=== PATIENT | female | born 1985 | race Caucasian/White ===

== ENCOUNTER 2024-03-31 21:56 | Emergency (ER) | payer OTHER, SELFPAY ==
[2024-03-31 21:58] VITALS: BP 123/83
[2024-03-31 22:19] LABS: % Basophils 0.9 % (0-2); % Eosinophils 2.5 % (0-6); % Immature Granulocytes 0.2 % (0-0.5); % Lymphocytes 37.4 % (20.5-51.1); % Monocytes 8.8 % (1.7-9.3); % Neutrophils 50.2 % (42.2-75.2); Absolute Basophils 0.1 10^3/uL (0-0.2); Absolute Eosinophils 0.1 10^3/uL (0-0.7); Absolute Lymphocytes 2.1 10^3/uL (1.2-3.4); Absolute Monocytes 0.5 10^3/uL (0.1-0.6); Absolute Neutrophils 2.9 10^3/uL (1.4-6.5); Hematocrit 38.1 % (37.0-47.0); Hemoglobin 11.9 g/dL (12.0-16.0); Mean Corp Hgb Conc. 31.2 g/dL (33.0-37.0); Mean Corpuscular Hgb 25.5 pg (27.0-31.0); Mean Corpuscular Volume 81.6 fL (81.0-99.0); Mean Platelet Volume 11.1 fL (7.4-10.4); Nucleated Red Blood Cells % 0 %; Platelet Count 214 10^3/uL (130-400); Red Blood Cell Count 4.67 10^6/uL (4.20-5.40); Red Cell Dist. Width 15.3 % (11.5-14.5); White Blood Cell Count 5.7 10^3/uL (4.8-10.8)
[2024-03-31 22:31] LABS: HCG, Serum Qualitative Screen Negative
[2024-03-31 22:35] LABS: ALT (SGPT) 20 U/L (0-35); AST (SGOT) 23 U/L (14-36); Albumin 4.6 g/dl (3.5-5.0); Alkaline Phosphatase 76 U/L (38-126); Blood Urea Nitrogen 11 mg/dl (7-17); Calcium 11.5 mg/dl (8.4-10.2); Carbon Dioxide 26 mmol/L (22-30); Chloride 103 mmol/L (98-107); Glucose 112 mg/dl (70-99); Sodium 137 mmol/L (135-145); Total Bilirubin 0.4 mg/dl (0.2-1.3); Total Protein 7.3 g/dl (6.3-8.2); eGFR > 60.00
--- NOTE | 2024-04-01 01:57 | ED.GENMED ---
History of Present Illness
General
Chief Complaint: Skin Problem
Source: patient
Exam Limitations: none
Time Seen by Provider: 04/01/24 01:34
Travel History
Have you had any contact with someone who has COVID-19?: No
Do you have any symptoms of coronavirus? Fever > 100 degrees, chills, cough, shortness of breath, sore throat, loss of taste or smell, muscle aches, or headache?: No
History of Present Illness
History of Present Illness:
This is a 38 year old Andorran speaking female that comes in with multiple complaints. States that she feels like the left sided of her face is swollen and that this started about 7pm. States that she also has some left upper abd discomfort. States
that she has slight chest discomfort with SOB and pain with deep breathing. Denies any fever, chills, nausea, vomiting, diarrhea, headache, dizziness, urinary burning.
Past History
Past History
ED Past Medical History: None; Negative Asthma, HTN, Hypercholesterolemia or NIDDM
ED Past Surgical History: Gynecological (Uterine polyp removed)
Social History
Tobacco: Non-smoker
Alcohol: Occasional
Personal: Single
Living: alone
Review of Systems
Review of Systems
All Other Systems: ROS reviewed and negative except as documented in HPI and ROS
Constitutional: Reports no symptoms; Denies fever or chills
EENT: Reports no symptoms
Respiratory: Reports trouble breathing; Denies cough
Cardiac: Reports chest pain
ABD/GI: Reports abdominal pain; Denies nausea, vomiting or diarrhea
: Reports no symptoms; Denies dysuria, frequency or urgency
Musculoskeletal: Reports no symptoms
Skin: Reports no symptoms
Neurological: Reports no symptoms; Denies dizzy or headache
Psychiatric: Reports no symptoms
Phy Exam
General Physical Exam
General Presentation: well appearing and no apparent distress
General age: appears stated age
General Skin: warm and dry
General Habitus: normal
General Mental: alert
General Hydration: appears well hydrated
ENT Exam
ENT Exam: TM's normal, pharynx normal and neck supple
Eye Exam
Eye Exam: EOMI
Cardiovascular Exam
Cardiovascular Exam: regular rate/rhythm, no edema, no murmur and normal peripheral pulses
Pulmonary Exam
Pulmonary Exam: lungs clear, no respiratory distress, no rales, chest non tender, no crackles, no rhonchi, no wheezing and no cough
Gastrointestinal Exam
Gastrointestinal Exam: normal bowel sounds, non tender, soft, no organomegaly, no pulsatile mass and non distended
Musculoskeletal Exam
Musculoskeletal Exam: full ROM and no edema
Skin Exam
Skin Exam: normal color, warm/dry, no rash, no petechia and other (Negative for obvious facial swelling, Negative for any redness)
Psychiatric Exam
Psychiatric Exam: normal mood/affect
Course
Orders/Labs/Results
Orders:
Orders
03/31/24 22:06
Test Result ONCE
03/31/24 22:11
Complete Blood Count/With Diff Urgent
Comprehensive Metabolic Panel Urgent
HCG, Serum Qualitative Screen Urgent
04/01/24 01:58
Electrocardiogram (*1) Urgent
Reason for Study: Shortness of Breath
EKG- Treatment ONCE
CR Chest - 2 Views Urgent
Comment:
Reason For Exam: SOB chest pain
04/01/24 02:08
D-Dimer Urgent
Troponin I Urgent
Abnormal Lab Results
03/31/24
22:11
Hgb 11.9 L g/dL
(12.0-16.0)
MCH 25.5 L pg
(27.0-31.0)
MCHC 31.2 L g/dL
(33.0-37.0)
RDW 15.3 H %
(11.5-14.5)
MPV 11.1 H fL
(7.4-10.4)
Glucose 112 H mg/dl
(70-99)
Calcium 11.5 H mg/dl
(8.4-10.2)
03/31/24 22:11
03/31/24 22:11
Hgb slightly low. Glucose nonfasting. Calcium elevation. HCG negative. Troponin <0.012, D-dimer 0.31
Vital Signs
Initial and Last Documented VS:
Initial Vital Signs
Temp Pulse Resp BP Pulse Ox
97.9 F 90 18 123/83 99
03/31/24 21:58 03/31/24 21:58 03/31/24 21:58 03/31/24 21:58 03/31/24 21:58
Last Documented Vital Signs
Temp Pulse Resp BP Pulse Ox
97.9 F 84 13 128/76 99
03/31/24 21:58 04/01/24 02:51 04/01/24 02:51 04/01/24 02:51 03/31/24 21:58
MDM/Problems Addressed
Differential Diagnosis Includes:
PNA, PE, Dental issues
MDM/Problems Addressed:
This is a 38 year old female that comes in with multiple complaints. Via the Phone file conversion operator, patient states that she feels like her face is swollen. States that she has slight chest pain and SOB. Pain with deep breathing and this upper abd left
sided pain. States that this started tonight.
Will check labs. Chest x-ray, D-dimer
Back into see patient. Explained that her blood work is normal. Her D-dimer is negative and her chest X-ray is normal. Troponin is normal and there is no redness or obvious swelling of her face. Patient to follow up with the family doctor. Return
with any concerns.
Chronic conditions affecting care:
NA
Acute Exacerbation and/or Progression of Chronic Illness:
NA
*Radiology
Radiology exam reviewed: preliminary read by ED provider (Chest- Negative for any cardiopulmonary disease)
*Pulse Oximetry
Patient hypoxic: no
*Rn Chemical Dependency Interpretation
Rate: Rn Chemical Dependency- N/A
*Critical Care Note
Total Time (30-74mins, 75-104mins- exclusive of procedures): Not Applicable
ED Attending Note
-
Portions of this chart may have been created with voice recognition software.� Occasional wrong word or��sound alike� substitutions may have occurred due to the inherent limitations of voice recognition software.
Discharge Plan
Departure
Patient Disposition: Home (Routine Discharge)
Date of Disposition: 04/01/24
Time of Disposition: 03:01
Patient with high blood pressure during this ER visit?: No
Condition: Good
Covid-19: Not Applicable
Discharge Problem:
Multiple complaints
Instructions: Anxiety, Adult ED
Prescriptions:
No Action
No Current Medications
0
Activity Restrictions/Additional Instructions:
As discussed, your blood work is normal. Your Chest x-ray is normal along with your ECG. There is no obvious facial swelling or redness. This may all be due to anxiety. Please follow up with the family doctor. IF YOU HAVE ANY REDNESS OF THE FACE, OR
YOU HAVE ANY OTHER CONCERNS PLEASE RETURN TO THE EMEGENCY ROOM.
Interventions
Interventions:
*Risk Screen - Suicide Last Done: 04/01/24 02:12
*General Assessment Last Done: 03/31/24 21:58
*Neglect/Abuse Screening Last Done: 04/01/24 02:12
*ED COVID-19 Vaccine History Last Done: 03/31/24 21:58
*Nursing Disposition Last Done: 04/01/24 00:53
ED-Skin Assessment Last Done: 04/01/24 02:12
Discharge Date and Time
Print Language: IVORIAN
[2024-04-01 02:29] LABS: D-Dimer 0.31 ug/mlFEU (0.00-0.50)
[2024-04-01 02:49] LABS: Troponin I < 0.012 ng/ml
[2024-04-01 02:51] VITALS: BP 128/76
[2024-04-01 03:00] VITALS: BP 121/71
== END 2024-04-01 03:08 | disposition home or self-care (01) ==
LOC: EMR 21:56
PROVIDERS: Clinical Nurse Specialist Family Health; Emergency Medicine; EMERGENCY PHYSICIAN Emergency Medicine; FAMILY PHYSICIAN Nurse Practitioner
DX: R10.12 Left upper quadrant pain (principal); R07.89 Other chest pain; R06.02 Shortness of breath
CPT/HCPCS: 99283; 71046; 80053; 84484; 84703; 85025; 85379; 93005

== ENCOUNTER 2024-04-02 10:20 | Emergency (ER) | payer OTHER, SELFPAY ==
[2024-04-02 10:25] VITALS: BP 108/70
--- NOTE | 2024-04-02 10:57 | ED.GENMED ---
History of Present Illness
<Letha Jim PA-C - Last Filed: 04/02/24 20:38>
General
Chief Complaint: Swelling
Source: patient and other (Patient is Syrian-speaking, language line was used for interpretation)
Exam Limitations: none
Time Seen by Provider: 04/02/24 10:56
Nursing documentation reviewed up to this point in time: agreed with
Travel History
Have you had any contact with someone who has COVID-19?: No
Do you have any symptoms of coronavirus? Fever > 100 degrees, chills, cough, shortness of breath, sore throat, loss of taste or smell, muscle aches, or headache?: No
History of Present Illness
History of Present Illness:
38-year-old female with no past medical history presenting emergency department today with concern of facial swelling, nausea and headache, as well as left-sided abdominal pain that started yesterday. Patient states that she started experiencing
similar symptoms yesterday around 4 PM. Patient did not have a headache and nausea at that time, but only left abdominal pain chest pain. She was seen here in emergency department yesterday and had a unremarkable workup. Patient states that her
pain has gotten worse and that she now has flank pain associated with it. Patient denies any fevers or chills, denies any hematuria, dysuria, any vomiting. Patient denies any visual changes. Patient denies any syncopal episode, any chest pain
shortness of breath. Patient states that she has tried Motrin and allergy medication without relief. Patient also notes left-sided facial swelling which she was seen here yesterday for as well. Patient denies any dysphagia or any rash.
Past History
<Letha Jim PA-C - Last Filed: 04/02/24 20:38>
Past History
ED Past Medical History: None; Negative Asthma, HTN, Hypercholesterolemia or NIDDM
ED Past Surgical History: Gynecological (Uterine polyp removed)
Social History
Tobacco: Non-smoker
Alcohol: Occasional
Personal: Single
Living: alone
Review of Systems
<Letha Jim PA-C - Last Filed: 04/02/24 20:38>
Review of Systems
All Other Systems: ROS reviewed and negative except as documented in HPI and ROS
Phy Exam
<Letha Jim PA-C - Last Filed: 04/02/24 20:38>
Physical Exam
Physical Exam:
General: Patient is well appearing and in no acute distress; non-toxic
Skin: Warm and dry, no rashes or lesions
Head: Normocephalic, atraumatic. I am personally not able to appreciate any left-sided facial swelling.
Eyes: Sclera non-icteric. EOMs intact. Mild left upper eyelid swelling.
Mouth: Uvula midline, no pharyngeal erythema.
Neck: No cervical lymphadenopathy
Cardiac: Regular rate and rhythm, no murmurs
Peripheral Vascular: No lower extremity swelling or
Pulm: Normal respiratory effort
Abdomen: No palpable masses, mild periumbilical and generalized left-sided abdominal tenderness palpation. No CVA tenderness. Normoactive bowel sounds.
Neuro: CN II-XII intact, no focal neurologic deficits.
Psychiatric: Appropriate mood and affect.
Course
<Letha Jim PA-C - Last Filed: 04/02/24 20:38>
Orders/Labs/Results
Orders:
Orders
04/02/24 11:40
CT Abd/pelvis W Iv Cont Urgent
Comment:
Reason For Exam: persistent periumbilical abdominal pain
04/02/24 11:48
Test Result ONCE
04/02/24 11:55
0.9% Sodium Chloride 1000 ml [Nss] 1,000 ml IV BOLUS
Ketorolac [Toradol] 15 mg IV NOW STA
Ondansetron Injectable [Zofran] 4 mg IV NOW STA
04/02/24 12:08
Complete Blood Count/With Diff Urgent
Comprehensive Metabolic Panel Urgent
HCG, Serum Qualitative Screen Urgent
Lipase Urgent
04/02/24 12:12
Urinalysis Reflex To Culture Urgent
Date Specimen was Collected: 04/02/24
Time Specimen was Collected: 12:08
04/02/24 14:19
Diphenhydramine [Benadryl] 12.5 mg IV NOW STA
Metoclopramide [Reglan] 10 mg IV NOW STA
Abnormal Lab Results
04/02/24
12:08
WBC 4.0 L 10^3/uL
(4.8-10.8)
MCV 78.4 L fL
(81.0-99.0)
MCH 25.6 L pg
(27.0-31.0)
MCHC 32.6 L g/dL
(33.0-37.0)
RDW 15.4 H %
(11.5-14.5)
MPV 11.0 H fL
(7.4-10.4)
Absolute Lymphs (auto) 1.1 L 10^3/uL
(1.2-3.4)
Chloride 108 H mmol/L
(98-107)
Creatinine 0.5 L mg/dL
(0.6-1.0)
Calcium 10.4 H mg/dl
(8.4-10.2)
04/02/24 12:08
04/02/24 12:08
Vital Signs
Initial and Last Documented VS:
Initial Vital Signs
Temp Pulse Resp BP Pulse Ox
98.1 F 86 18 108/70 100
04/02/24 10:25 04/02/24 10:25 04/02/24 10:25 04/02/24 10:25 04/02/24 10:25
Last Documented Vital Signs
Temp Pulse Resp BP Pulse Ox
98.1 F 86 16 118/62 100
04/02/24 10:25 04/02/24 14:33 04/02/24 14:33 04/02/24 14:33 04/02/24 14:33
<Alejandro Aguilar, DO - Last Filed: 04/02/24 13:36>
Orders/Labs/Results
Orders:
Orders
04/02/24 11:40
CT Abd/pelvis W Iv Cont Urgent
Comment:
Reason For Exam: persistent periumbilical abdominal pain
04/02/24 11:48
Test Result ONCE
04/02/24 11:55
0.9% Sodium Chloride 1000 ml [Nss] 1,000 ml IV BOLUS
Ketorolac [Toradol] 15 mg IV NOW STA
Ondansetron Injectable [Zofran] 4 mg IV NOW STA
04/02/24 12:08
Complete Blood Count/With Diff Urgent
Comprehensive Metabolic Panel Urgent
HCG, Serum Qualitative Screen Urgent
Lipase Urgent
04/02/24 12:12
Urinalysis Reflex To Culture Urgent
Date Specimen was Collected: 04/02/24
Time Specimen was Collected: 12:08
04/02/24 14:19
Diphenhydramine [Benadryl] 12.5 mg IV NOW STA
Metoclopramide [Reglan] 10 mg IV NOW STA
Abnormal Lab Results
04/02/24
12:08
WBC 4.0 L 10^3/uL
(4.8-10.8)
MCV 78.4 L fL
(81.0-99.0)
MCH 25.6 L pg
(27.0-31.0)
MCHC 32.6 L g/dL
(33.0-37.0)
RDW 15.4 H %
(11.5-14.5)
MPV 11.0 H fL
(7.4-10.4)
Absolute Lymphs (auto) 1.1 L 10^3/uL
(1.2-3.4)
Chloride 108 H mmol/L
(98-107)
Creatinine 0.5 L mg/dL
(0.6-1.0)
Calcium 10.4 H mg/dl
(8.4-10.2)
04/02/24 12:08
04/02/24 12:08
Vital Signs
Initial and Last Documented VS:
Initial Vital Signs
Temp Pulse Resp BP Pulse Ox
98.1 F 86 18 108/70 100
04/02/24 10:25 04/02/24 10:25 04/02/24 10:25 04/02/24 10:25 04/02/24 10:25
Last Documented Vital Signs
Temp Pulse Resp BP Pulse Ox
98.1 F 86 16 118/62 100
04/02/24 10:25 04/02/24 14:33 04/02/24 14:33 04/02/24 14:33 04/02/24 14:33
<Letha Jim PA-C - Last Filed: 04/02/24 20:38>
*Pulse Oximetry
Patient hypoxic: no
*Critical Care Note
Total Time (30-74mins, 75-104mins- exclusive of procedures): Not Applicable
Data Reviewed
Review of Other/Old Records Reveals: Records (Reviewed previous records from ER physician documentation on 04/01/2024) and Discharge Summary (Discharge summaries [facility])
Source: patient and records
<Letha Jim PA-C - Last Filed: 04/02/24 20:38>
Patient Management
Escalation/DeEscalation of care consider admission/obs:
38 y/o female presenting to the ER with multiple complaints:
Abdominal pain: Started yesterday, has gotten worse and been persistent. CBC and CMP unremarkable. CT scan of the abdomen and pelvis negative for any acute intraabdominal pathology. Pain completely resolved with one dose of Toradol. Patient has
follow up with primary scheduled for April 17.
Head fullness/dizziness: Patient states that she has a sensation of head fullness/dizziness. Neurologic exam unremarkable with no focal deficits. No dysmetria. Pain significantly improved with reglan, toradol, benadryl. Patient also has mild left
sided eyelid swelling. Suspect an acute rhinosinusitis or allergic rhinitis/conjunctivitis. No indication for head CT at this time. Patient sent home on course of Augmentin. Advised continued use of claritin and revaluation. All patient questions
answered. Stable for discharge.
<Letha Jim PA-C - Last Filed: 04/02/24 20:38>
Update Note
Update Note:
2:18 pm-- Patient states that in general her headache has improved but she does still experience some nausea and head heaviness. Will try Reglan
Prior to discharge, patient states that she feels a lot better and just has some mild head discomfort now.
ED Attending Note
<Letha Jim PA-C - Last Filed: 04/02/24 20:38>
-
Portions of this chart may have been created with voice recognition software.� Occasional wrong word or��sound alike� substitutions may have occurred due to the inherent limitations of voice recognition software.
<Alejandro Aguilar DO - Last Filed: 04/02/24 13:36>
ED Attending Note
Patient seen and examined by attending physician: Yes
I performed a history and physical exam of patient and discussed management with resident, I reviewed resident's note and agree with documented findings and plan of care.: Yes
ED Attending Note:
I have reviewed and agree with patient treatment plan by Letha Jim. My exam revealed 38-year-old female in no acute distress, speaking through division human resources manager. Mild left perinasal swelling abdomen exam benign. Will evaluate for possible kidney
stone versus other cause of flank/epigastric pain.
Discharge Plan
Departure
Patient Disposition: Home (Routine Discharge)
Date of Disposition: 04/02/24
Time of Disposition: 16:14
Patient with high blood pressure during this ER visit?: No
Condition: Good
Discharge Problem:
Sinusitis, Headache
Instructions: Sinusitis, Adult ED, Seasonal Allergies ED, BLOOD PRESSURE
Prescriptions:
New
amoxicillin-pot clavulanate [Augmentin] 500-125 mg tablet
1 tab PO Q8H 5 Days Qty: 15 0RF
Referrals:
Zeinab Quan CRNP [Family Provider] -
Activity Restrictions/Additional Instructions:
We have sent Augmentin to your pharmacy. Please take one tablet every 8 hours for 5 days.
Please return emergency department should you experience shortness of breath, chest pain, trouble swallowing, tongue or lip swelling, or any other signs or symptoms concerning to you.
As discussed, you can continue to take loratidine (Claratine) one 10 mg tablet once daily or one 5 mg tablet twice daily.
Please follow-up with your primary care provider as discussed on April 17.
Interventions
Interventions:
*Risk Screen - Suicide Last Done: 04/02/24 10:25
*General Assessment Last Done: 04/02/24 10:25
*Neglect/Abuse Screening Last Done: 04/02/24 10:25
ED- Fall Risk Assessment Last Done: 04/02/24 11:13
*ED COVID-19 Vaccine History Last Done: 04/02/24 10:25
*Nursing Disposition Last Done: 04/02/24 16:29
ED- Cardiac Assessment Last Done: 04/02/24 11:13
ED- Pulmonary Assessment Last Done: 04/02/24 11:13
ED-Skin Assessment Last Done: 04/02/24 11:12
Discharge Date and Time
Discharge Date/Time: 04/02/24 16:29
Print Language: Syrian
[2024-04-02 12:27] LABS: Urine Albumin Negative (Neg - Trace); Urine Bilirubin Negative (Negative); Urine Character Clear (Clear); Urine Color Yellow; Urine Glucose Negative (Negative); Urine Ketone Negative (Negative); Urine Leukocyte Negative (Negative); Urine Nitrite Negative (Negative); Urine Occult Blood Negative (Negative); Urine Specific Gravity 1.005 (<1.030); Urine Urobilinogen Negative (Neg - 1+)
[2024-04-02] MEDS: ZOFRAN 4 MG IV (12:58)
[2024-04-02] MEDS: TORADOL 15 MG IV (12:58)
[2024-04-02] MEDS: NSS 1000 IV (12:59)
[2024-04-02 13:04] LABS: % Eosinophils 1.5 % (0-6); % Immature Granulocytes 0.2 % (0-0.5); % Lymphocytes 26.4 % (20.5-51.1); % Neutrophils 63.9 % (42.2-75.2); Absolute Eosinophils 0.1 10^3/uL (0-0.7); Absolute Lymphocytes 1.1 10^3/uL (1.2-3.4); Absolute Monocytes 0.3 10^3/uL (0.1-0.6); Absolute Neutrophils 2.6 10^3/uL (1.4-6.5); Hematocrit 37.4 % (37.0-47.0); Hemoglobin 12.2 g/dL (12.0-16.0); Mean Corp Hgb Conc. 32.6 g/dL (33.0-37.0); Mean Corpuscular Hgb 25.6 pg (27.0-31.0); Mean Corpuscular Volume 78.4 fL (81.0-99.0); Nucleated Red Blood Cells % 0 %; Platelet Count 204 10^3/uL (130-400); Red Blood Cell Count 4.77 10^6/uL (4.20-5.40); Red Cell Dist. Width 15.4 % (11.5-14.5)
[2024-04-02 13:32] LABS: ALT (SGPT) 21 U/L (0-35); AST (SGOT) 26 U/L (14-36); Albumin 4.3 g/dl (3.5-5.0); Alkaline Phosphatase 55 U/L (38-126); Blood Urea Nitrogen 8 mg/dl (7-17); Calcium 10.4 mg/dl (8.4-10.2); Carbon Dioxide 23 mmol/L (22-30); Chloride 108 mmol/L (98-107); Glucose 85 mg/dl (70-99); Lipase 103 U/L (23-300); Potassium 4.2 mmol/L (3.5-5.1); Sodium 137 mmol/L (135-145); Total Bilirubin 0.7 mg/dl (0.2-1.3); eGFR > 60.00
[2024-04-02 13:52] LABS: HCG, Serum Qualitative Screen Negative
[2024-04-02] MEDS: BENADRYL 12.5 MG IV (14:25)
[2024-04-02] MEDS: REGLAN 10 MG IV (14:25)
[2024-04-02 14:33] VITALS: BP 118/62
== END 2024-04-02 16:29 | disposition home or self-care (01) ==
LOC: EMR 10:20
PROVIDERS: Physician Assistant; EMERGENCY PHYSICIAN Emergency Medicine; FAMILY PHYSICIAN Nurse Practitioner
DX: J01.90 Acute sinusitis, unspecified (principal); R51.9 Headache, unspecified; R10.33 Periumbilical pain; R11.0 Nausea; R22.0 Localized swelling, mass and lump, head; R42 Dizziness and giddiness; R07.9 Chest pain, unspecified; Z11.52 Encounter for screening for COVID-19
CPT/HCPCS: 99285; 74177; 80053; 81003; 83690; 84703; 85025; Q9967

== ENCOUNTER 2024-04-04 20:32 | Emergency (ER) | payer OTHER, SELFPAY ==
[2024-04-04 20:41] VITALS: BP 104/72
--- NOTE | 2024-04-04 22:18 | ED.GENMED ---
History of Present Illness
General
Chief Complaint: Nasal Problem
Time Seen by Provider: 04/04/24 21:38
Travel History
Have you had any contact with someone who has COVID-19?: No
Do you have any symptoms of coronavirus? Fever > 100 degrees, chills, cough, shortness of breath, sore throat, loss of taste or smell, muscle aches, or headache?: No
History of Present Illness
History of Present Illness:
Marshallese language line [id number] used for interpretation
38-year-old female with no significant past medical history presenting back to the emergency department for the third time in 3 days for evaluation of a multitude of symptoms but today stating that symptom bothering her most is a headache described
to be a stabbing sharp sensation a greenish-red nasal discharge. Patient reports that she was started on an antibiotic but she is not sure for what. She states she does have a little bit of frustration as no one checked her head when she was here
the other day and only did a workup on her abdomen. Patient states no new symptoms today outside of feeling a little confused and difficulty concentrating.
Past History
Past History
ED Past Medical History: None; Negative Asthma, HTN, Hypercholesterolemia or NIDDM
ED Past Surgical History: Gynecological (Uterine polyp removed)
Social History
Tobacco: Non-smoker
Alcohol: Occasional
Drug: None
Personal: Single
Living: alone
Review of Systems
Review of Systems
All Other Systems: ROS reviewed and negative except as documented in HPI and ROS
Phy Exam
Physical Exam
Physical Exam:
GENERAL: Alert , tearful and upset/frustrated
EYE: conjunctiva clear
NECK: Supple
ENT: o/p clr, mmm. No tonsillar edema or exudates, uvula midline, airway patent, no stridor or trismus
CARDIAC: Regular rate and rhythm
LUNGS: Clear breath sounds bilaterally, no acute respiratory distress, no wheezes/rales/rhonchi
NEUROLOGICAL: Alert and oriented
SKIN: Warm and dry, skin intact.
MUSCULOSKELETAL: well perfused.
PSYCH: Normal and appropriate interaction.
Scores
Heart Failure Risk
Heart Failure Risk Score: Not Applicable
Heart Score for Chest Pain Patients
STEMI patient?: Not applicable
Withdrawal Assessment of Alcohol
Withdrawal Assessment Completed?: Not applicable
Course
Orders/Labs/Results
Orders:
Orders
04/04/24 22:18
CT Head W/o Iv Contrast Urgent
Comment:
Reason For Exam: headache
Ibuprofen [Motrin] 600 mg PO NOW STA
04/04/24 22:21
COVID-19 Antigen Urgent
Source: Nasal Swab
Vital Signs
Initial and Last Documented VS:
Initial Vital Signs
Temp Pulse Resp BP Pulse Ox
98.3 F 100 16 104/72 100
04/04/24 20:41 04/04/24 20:41 04/04/24 20:41 04/04/24 20:41 04/04/24 20:41
Last Documented Vital Signs
Temp Pulse Resp BP Pulse Ox
98.6 F 82 14 120/68 96
04/05/24 00:06 04/05/24 00:06 04/05/24 00:06 04/05/24 00:06 04/05/24 00:06
MDM/Problems Addressed
Differential Diagnosis Includes:
Viral syndrome, tension headache, migraine headache, minimal concern for intracranial bleeding
MDM/Problems Addressed:
38-year-old female presenting to the emergency department for evaluation of a multitude of symptoms, this is her third visit to the ER this week for the same. Had blood work done and CT imaging of the abdomen and pelvis 2 days ago without any
abnormal pathologies. I reviewed her lab work which did show a mild leukopenia which could certainly signify viral etiology. Will check a COVID test as this was not done. Patient's main complaint today is headache and while I am doubtful for
intracranial bleeding this is her third visit to the emergency department so I do think it is reasonable to check more advanced imaging of the head to rule out any significant emergent pathologies. Patient has not taken any medications for since
this started so we will trial some Motrin. Reassessment following with suspicion ultimate plan will be to discharge home.
*Radiology
Radiology exam reviewed: radiology read reviewed
*Pulse Oximetry
Patient hypoxic: no
*Critical Care Note
Total Time (30-74mins, 75-104mins- exclusive of procedures): Not Applicable
Patient Management
Escalation/DeEscalation of care consider admission/obs:
Patient's CAT scan negative for any intracranial pathology. Stable for discharge home and continued outpatient management.
ED Attending Note
-
Portions of this chart may have been created with voice recognition software.� Occasional wrong word or��sound alike� substitutions may have occurred due to the inherent limitations of voice recognition software.
Discharge Plan
Departure
Patient Disposition: Home (Routine Discharge)
Date of Disposition: 04/05/24
Time of Disposition: 00:06
Patient with high blood pressure during this ER visit?: No
Discharge Problem:
Headache
Instructions: Headache, Adult ED
Prescriptions:
No Action
amoxicillin-pot clavulanate [Augmentin] 500-125 mg tablet
1 tab PO Q8H 5 Days Qty: 15 0RF
Referrals:
Zeinab Quan CRNP [Family Provider] -
Interventions
Interventions:
*Risk Screen - Suicide Last Done: 04/04/24 20:41
*General Assessment Last Done: 04/04/24 20:41
*Neglect/Abuse Screening Last Done: 04/04/24 20:41
ED- Fall Risk Assessment Last Done: 04/05/24 00:00
*ED COVID-19 Vaccine History Last Done: 04/04/24 21:34
*Nursing Disposition Last Done: 04/05/24 00:10
ED-EENT Assessment Last Done: 04/04/24 21:35
Discharge Date and Time
Discharge Date/Time: 04/05/24 00:10
Print Language: Marshallese
[2024-04-04] MEDS: MOTRIN 600 MG PO (22:24)
[2024-04-04 22:44] LABS: COVID-19 Antigen Negative (Negative)
[2024-04-05 00:06] VITALS: BP 120/68
== END 2024-04-05 00:10 | disposition home or self-care (01) ==
LOC: EMR 20:32
PROVIDERS: Physician Assistant Medical; EMERGENCY PHYSICIAN Emergency Medicine; FAMILY PHYSICIAN Nurse Practitioner
DX: R51.9 Headache, unspecified (principal); Z11.52 Encounter for screening for COVID-19
CPT/HCPCS: 99284; 70450; 87811

== ENCOUNTER 2024-12-17 17:09 | Emergency (ER) | payer OTHER, SELFPAY ==
[2024-12-17 17:15] VITALS: BP 124/78
[2024-12-17 17:30] LABS: % Basophils 0.7 % (0-2); % Eosinophils 0.7 % (0-6); % Immature Granulocytes 0.4 % (0-0.5); % Lymphocytes 23.6 % (20.5-51.1); % Monocytes 7.4 % (1.7-9.3); % Neutrophils 67.2 % (42.2-75.2); Absolute Basophils 0.1 10^3/uL (0-0.2); Absolute Eosinophils 0.1 10^3/uL (0-0.7); Absolute Lymphocytes 1.7 10^3/uL (1.2-3.4); Absolute Monocytes 0.5 10^3/uL (0.1-0.6); Absolute Neutrophils 4.8 10^3/uL (1.4-6.5); Hematocrit 38.6 % (37.0-47.0); Hemoglobin 12.6 g/dL (12.0-16.0); Mean Corp Hgb Conc. 32.6 g/dL (33.0-37.0); Mean Corpuscular Hgb 26.3 pg (27.0-31.0); Mean Corpuscular Volume 80.6 fL (81.0-99.0); Mean Platelet Volume 10.8 fL (7.4-10.4); Nucleated Red Blood Cells % 0 %; Platelet Count 205 10^3/uL (130-400); Red Blood Cell Count 4.79 10^6/uL (4.20-5.40); Red Cell Dist. Width 13.9 % (11.5-14.5); White Blood Cell Count 7.1 10^3/uL (4.8-10.8)
[2024-12-17 17:50] LABS: ALT (SGPT) 21 U/L (0-35); AST (SGOT) 20 U/L (14-36); Albumin 5.1 g/dl (3.5-5.0); Alkaline Phosphatase 75 U/L (38-126); Blood Urea Nitrogen 8 mg/dl (7-17); Calcium 10.2 mg/dl (8.4-10.2); Carbon Dioxide 25 mmol/L (22-30); Chloride 103 mmol/L (98-107); Glucose 96 mg/dl (70-99); Potassium 3.7 mmol/L (3.5-5.1); Sodium 139 mmol/L (135-145); Total Bilirubin 0.6 mg/dl (0.2-1.3); Total Protein 7.7 g/dl (6.3-8.2); eGFR > 60.00
--- NOTE | 2024-12-17 20:04 | ED.GENMED ---
History of Present Illness
General
Chief Complaint: Post Operative Problem(s)
Time Seen by Provider: 12/17/24 20:04
History of Present Illness
History of Present Illness:
TIME OF INITIAL ENCOUNTER: 8:05 PM
HPI: Patient had a parathyroidectomy at [facility] about a month ago. The parathyroidectomy was due to parathyroid nodules present in the setting of hypercalcemia. More recently, she has been having dyspnea on exertion. She has a sensation that she
cannot quite clear her lungs. She has no chest pain.
EXAM:
GENERAL: Well appearing in no distress
HEENT: Moist oral mucosa, recent appearing surgical wound/scarring to the lower anterior neck consistent with parathyroidectomy
CARDIOVASCULAR: No murmurs, normal heart rate, regular rhythm, No chest wall tenderness
PULMONARY: No respiratory distress, breath sounds are clear and equal
ABDOMEN: Soft with no peritoneal signs, no tenderness
NEUROLOGIC: Excellent strength all extremities, no coordination deficits
PSYCHIATRIC: Appropriate mental status, normal insight and judgement
EXTREMITIES: Nontender, no edema, moves all extremities equally
SKIN: No rash, no lesions
NUMBER AND COMPLEXITY OF PROBLEMS ADDRESSED AT THE ENCOUNTER
� Chronic conditions affecting care: Had parathyroidectomy for hypercalcemia
� Acute Exacerbation and/or Progression of Chronic Illness: This is an acute problem
� Differential Diagnosis includes: Anxiety, viral syndrome, reactive airway disease, PE
AMOUNT AND/OR COMPLEXITY OF DATA TO BE REVIEWED AND ANALYZED
� I performed an independent evaluation of and my interpretation is:
EKG: Sinus 86, normal axis, no acute ST abnormality
CT: I personally reviewed the CT imaging of the chest and agree with radiologist interpretation that there is no PE or any other abnormality to the lung
X-rays:
Laboratory Studies: White count 7.1, hemoglobin 12.6, calcium normal, chemistries unremarkable
Other:
� Review of other/old records: The patient was seen here last year and at one point had multiple complaints along with a normal D-dimer
� Clinical information was obtained by an independent historian: I spoke to son at bedside who also assist with translation; ED nurse, Samreen, also assisted with translation
� Prescriptions/Medications Considered but not given: See below
� Further testing considered but not performed:
RISK OF COMPLICATIONS AND/OR MORBIDITY OR MORTALITY OF PATIENT MANAGEMENT
� Social determinants of health affecting care: Lives at home
� Discussion with other providers:
� Escalation of care including admission/observation vs risk of discharge considered: Room air sats are 100% vital signs are not consistent with PE however she did have a recent surgery and primarily complains of dyspnea on
exertion. Will obtain CT imaging for further evaluation.
ANY OTHER UPDATES:
10:10 PM: I reassessed patient. She appears very comfortable in no respiratory distress. CTA reassuring. She tells me that the nebulizer did not really make much of a difference. Will hold off on albuterol MDI as an outpatient as nebulizer did
not do anything.
Past History
Past History
ED Past Medical History: None; Negative Asthma, HTN, Hypercholesterolemia or NIDDM
ED Past Surgical History: Gynecological (Uterine polyp removed)
Social History
Tobacco: Non-smoker
Alcohol: Occasional
Drug: None
Personal: Single
Living: alone
Phy Exam
Physical Exam
Physical Exam:
See HPI
Course
Orders/Labs/Results
Orders:
Orders
12/17/24 17:24
CMP [Comprehensive Metabolic Panel] Urgent
Complete Blood Count/With Diff Urgent
HCG, Serum Qualitative Screen Urgent
Comment: ADD ON
12/17/24 20:13
Add On- LAB Urgent
Tests Added?: serum hcg screen
12/17/24 20:14
CT Chest PE Study Urgent
Comment:
Reason For Exam: MELTON after parathyroidectomy
Ipratropium/Albuterol Sulfate [Duoneb] 3 ml INH R NOW STA
12/17/24 20:58
Electrocardiogram (*1) Urgent
Reason for Study: Shortness of Breath
EKG- Treatment ONCE
Abnormal Lab Results
12/17/24
17:24
MCV 80.6 L fL
(81.0-99.0)
MCH 26.3 L pg
(27.0-31.0)
MCHC 32.6 L g/dL
(33.0-37.0)
MPV 10.8 H fL
(7.4-10.4)
Albumin 5.1 H g/dl
(3.5-5.0)
12/17/24 17:24
12/17/24 17:24
Vital Signs
Initial and Last Documented VS:
Initial Vital Signs
Temp Pulse Resp BP Pulse Ox
36.9 C 82 16 124/78 100
12/17/24 17:15 12/17/24 17:15 12/17/24 17:15 12/17/24 17:15 12/17/24 17:15
Last Documented Vital Signs
Temp Pulse Resp BP Pulse Ox
36.9 C 82 16 128/80 100
12/17/24 17:15 12/17/24 17:15 12/17/24 17:15 12/17/24 20:21 12/17/24 20:22
*Critical Care Note
Total Time (30-74mins, 75-104mins- exclusive of procedures): Not Applicable
ED Attending Note
-
Portions of this chart may have been created with voice recognition software.� Occasional wrong word or��sound alike� substitutions may have occurred due to the inherent limitations of voice recognition software.
Discharge Plan
Departure
Patient Disposition: Home (Routine Discharge)
Date of Disposition: 12/17/24
Time of Disposition: 22:12
Patient with high blood pressure during this ER visit?: Yes
Discharge Problem:
Shortness of breath
Instructions: Shortness of breath
Prescriptions:
No Action
amoxicillin-pot clavulanate [Augmentin] 500-125 mg tablet
1 tab PO Q8H 5 Days Qty: 15 0RF
Referrals:
Zeinab Quan CRNP [Family Provider] -
Activity Restrictions/Additional Instructions:
Komp'yuternaya tomografiya ne vyyavila trombov v legkikh jh kakikh-libo drugikh otkloneniy v legkikh. Vasha EKG v norme. Bazovyy satya krovi takzhe v norme. Vash uroven' sandra'tsiya 10,2. Vernites' syuda, yesli stanet khuzhe jh vozniknut
drugiye problemy.
Interventions
Interventions:
*Risk Screen - Suicide Last Done: 12/17/24 17:15
*General Assessment Last Done: 12/17/24 20:23
*Neglect/Abuse Screening Last Done: 12/17/24 17:15
*ED COVID-19 Vaccine History Last Done: 12/17/24 20:23
ED-Skin Assessment Last Done: 12/17/24 20:23
Discharge Date and Time
Print Language: Scottish
[2024-12-17] MEDS: DUONEB 3 ML INH (20:18)
[2024-12-17 20:21] VITALS: BP 128/80
[2024-12-17 21:00] VITALS: BP 125/59
[2024-12-17 21:13] LABS: HCG, Serum Qualitative Screen Negative
== END 2024-12-17 22:22 | disposition home or self-care (01) ==
LOC: EMR 17:09
PROVIDERS: Emergency Medicine; EMERGENCY PHYSICIAN Emergency Medicine; FAMILY PHYSICIAN Nurse Practitioner
DX: R06.02 Shortness of breath (principal); Z98.890 Other specified postprocedural states; Z90.89 Acquired absence of other organs
CPT/HCPCS: 99284; 94640; 71275; 80053; 84703; 85025; 93005; Q9967

== ENCOUNTER 2025-04-30 00:05 | Emergency (ER) | payer OTHER, SELFPAY ==
[2025-04-30] VITALS (11 sets, daily range): BP systolic 109–144; BP diastolic 67–80; PULSE 67–87
[2025-04-30 00:38] LABS: % Basophils 0.7 % (0-2); % Eosinophils 1.3 % (0-6); % Immature Granulocytes 0.1 % (0-0.5); % Lymphocytes 39.2 % (20.5-51.1); % Monocytes 8.5 % (1.7-9.3); % Neutrophils 50.2 % (42.2-75.2); Absolute Basophils 0.1 10^3/uL (0-0.2); Absolute Eosinophils 0.1 10^3/uL (0-0.7); Absolute Lymphocytes 2.7 10^3/uL (1.2-3.4); Absolute Monocytes 0.6 10^3/uL (0.1-0.6); Absolute Neutrophils 3.4 10^3/uL (1.4-6.5); Hematocrit 39.5 % (37.0-47.0); Hemoglobin 12.7 g/dL (12.0-16.0); Mean Corp Hgb Conc. 32.2 g/dL (33.0-37.0); Mean Corpuscular Hgb 24.6 pg (27.0-31.0); Mean Corpuscular Volume 76.4 fL (81.0-99.0); Mean Platelet Volume 11.2 fL (7.4-10.4); Nucleated Red Blood Cells % 0 %; Platelet Count 241 10^3/uL (130-400); Red Blood Cell Count 5.17 10^6/uL (4.20-5.40); Red Cell Dist. Width 15.6 % (11.5-14.5); White Blood Cell Count 6.8 10^3/uL (4.8-10.8)
[2025-04-30 00:53] LABS: HCG, Serum Qualitative Screen Negative
[2025-04-30 00:55] LABS: ALT (SGPT) 18 U/L (0-35); AST (SGOT) 20 U/L (14-36); Alkaline Phosphatase 55 U/L (38-126); Blood Urea Nitrogen 9 mg/dl (7-17); Calcium 9.7 mg/dl (8.4-10.2); Carbon Dioxide 21 mmol/L (22-30); Chloride 110 mmol/L (98-107); Glucose 101 mg/dl (70-99); Potassium 3.6 mmol/L (3.5-5.1); Sodium 141 mmol/L (135-145); Total Bilirubin 0.6 mg/dl (0.2-1.3); Total Protein 7.7 g/dl (6.3-8.2); eGFR > 60.00
[2025-04-30 01:26] LABS: TSH 3.51 uIU/ml (0.47-4.68)
[2025-04-30 01:58] LABS: Troponin I < 0.012 ng/ml
[2025-04-30 04:46] LABS: Troponin I < 0.012 ng/ml
[2025-04-30] MEDS: NSS 1000 IV (05:08)
--- NOTE | 2025-04-30 05:49 | ED.GENMED ---
History of Present Illness
General
Chief Complaint: Chest Pain
Source: patient and previous radiology exam (Unremarkable CT of the chest December 2024. Unremarkable CT of the head as well as abdomen and pelvis CT March 2024.)
Exam Limitations: none (Patient is Gambian-speaking. Language line chief accounting officer utilized.)
Time Seen by Provider: 04/30/25 04:29
Nursing documentation reviewed up to this point in time: agreed with
History of Present Illness
History of Present Illness:
This is a 39-year-old Gambian-speaking woman with history of hyperparathyroidism who underwent parathyroidectomy November 2024. Other than this no significant past medical history, she takes no medicines on a daily basis.
She does admit to significant stress and worry regarding ongoing [place] war and admits to poor oral intake, poor sleep over the past 3 to 4 days due to significant worry and stress.
Tonight she awoke around 1:30 AM and initially noted some pain and spasm of her left arm. She is unsure if she awoke lying on her left arm and has had similar occasional similar episodes of waking with pain in spasms of her left hand upper arm.
Left arm and hand spasm quickly resolved with repositioning but then she got up out of bed and went to the bathroom and upon doing so she developed somewhat abrupt onset of upper chest, upper back and anterior neck pain as well as headache. Along
with this she began to feel lightheaded, dizzy, felt as if she was in a fog and quickly lie down. With prompt repositioning to supine, lightheadedness and fogginess resolved but she continued with some upper chest discomfort and neck discomfort
thus presented to the ED. Currently pain-free and comfortable. She has not had a cough nor shortness of breath. No fever no chills.
Denies risk of . Last menstrual period April 06. Normal and on time.
Past History
Past History
ED Past Medical History: Other (Hyperparathyroidism status post prior thyroidectomy November 2024.); Negative Asthma, HTN, Hypercholesterolemia or NIDDM
ED Past Surgical History: Gynecological (Uterine polyp removed) and Other (Parathyroidectomy November 2024)
Social History
Tobacco: Non-smoker
Alcohol: Occasional
Drug: None
Personal: Single
Living: alone
Employment: Not employed
Family History
Family History: Other (Noncontributory)
Phy Exam
Physical Exam
Physical Exam:
GENERAL: 39-year-old woman appears her stated age, awake and alert, pleasant, appears in no acute distress. Easily communicative. [place]ian language line chief accounting officer utilized.
EYE: pupils equal and reactive. anicteric. Extraocular muscles intact.
NECK: Supple, nontender, no meningismus, no significant adenopathy. No palpable tenderness. No adenopathy. No bruit.
ENT: posterior pharynx is clear, oral mucosa is moist. TM clear b/l, nares patent.
CARDIAC: Regular rate and rhythm. no murmur. No chest wall tenderness.
LUNGS: Clear breath sounds bilaterally, no acute respiratory distress, no wheezes/rales/rhonchi
ABDOMEN: Soft, nondistended, without focal tenderness, no r/g, no cvat. normoactive BS.
NEUROLOGICAL: Alert and oriented x3, no focal neuro deficits.
SKIN: Warm and dry, normal color, skin intact. No rash.
MUSCULOSKELETAL: No C/C/E. peripheral pulses are full and equal b/l. No palpable tenderness.
PSYCH: Normal and appropriate interaction.
Scores
Heart Score for Chest Pain Patients
STEMI patient?: No
History: Slightly or Non-Suspicious
ECG: Normal
Age: </= 45 years
Risk Factors: No Risk Factors
Troponin: </= Normal Limit
Heart Score for Chest Pain Patients: 0
Heart Score Risk: 2.5% MACE over next 6 weeks
Course
Orders/Labs/Results
Orders:
Orders
04/30/25 00:17
Electrocardiogram (*1) Urgent
Reason for Study: Chest Pain
04/30/25 00:18
EKG- Treatment ONCE
Test Result ONCE
04/30/25 00:29
Complete Blood Count/With Diff Urgent
Comprehensive Metabolic Panel Urgent
HCG, Serum Qualitative Screen Urgent
TSH Urgent
04/30/25 01:19
Troponin I Urgent
04/30/25 04:06
EKG- Treatment ONCE
04/30/25 04:15
Troponin I Urgent
04/30/25 04:20
EKG [Electrocardiogram (*1)] Urgent
Reason for Study: Chest Pain
04/30/25 05:03
0.9% Sodium Chloride 1000 ml [Nss] 1,000 ml IV BOLUS
04/30/25 05:04
Orthostatic VS- Treatment ONCE
Abnormal Lab Results
04/30/25
00:29
MCV 76.4 L fL
(81.0-99.0)
MCH 24.6 L pg
(27.0-31.0)
MCHC 32.2 L g/dL
(33.0-37.0)
RDW 15.6 H %
(11.5-14.5)
MPV 11.2 H fL
(7.4-10.4)
Chloride 110 H mmol/L
(98-107)
Carbon Dioxide 21 L mmol/L
(22-30)
Glucose 101 H mg/dl
(70-99)
04/30/25 00:29
04/30/25 00:29
Vital Signs
Initial and Last Documented VS:
Initial Vital Signs
Temp Pulse Resp BP Pulse Ox
98.3 F 102 22 144/80 100
04/30/25 00:08 04/30/25 00:08 04/30/25 00:08 04/30/25 00:08 04/30/25 00:08
Last Documented Vital Signs
Temp Pulse Resp BP Pulse Ox
98.3 F 80 13 124/77 100
06/19/25 00:08 04/30/25 05:46 04/30/25 05:46 04/30/25 05:46 04/30/25 05:52
MDM/Problems Addressed
Differential Diagnosis Includes:
Concern for ACS, GERD, arrhythmia, orthostasis. Nothing in history nor exam to suggest TIA/CVA.
Unremarkable neuroimaging 1 year ago.
Significant underlying stress/anxiety.
She does admit to poor oral intake over the past 3 days. Some concern for an element of orthostasis upon standing tonight, concern for vasovagal episode/near syncope.
Thus far labs are unremarkable including negative troponin. EKG is unremarkable and unchanged from previous.
Will plan to repeat troponin.
Will give a liter of normal saline solution and plan for orthostatic vital signs.
If unremarkable, no return of symptoms we will plan for discharge to home with recommendations for prompt follow-up with her PCP.
*Pulse Oximetry
SaO2: 100
Oxygen Mode of Delivery: Room air
Patient hypoxic: no
*EKG
Interpreted by ED Provider?: Yes
Interpretation: normal
Comparison EKG: no changes
Rate: normal
Rhythm: sinus
Mcdougal: normal axis
Interval: normal interval
QRS Pattern: normal QRS
Ischemia: no ischemia
*Medical Doctor Interpretation
Rate: normal
Interpretation: normal
Rhythm: sinus
*Critical Care Note
Total Time (30-74mins, 75-104mins- exclusive of procedures): Not Applicable
Update Note
Update Note:
05:45
Repeat troponin remains flat.
Orthostatic vital signs are negative.
Patient has had no return of chest pain, eager to be discharged to home.
As above, I suspect an element of GERD as well as an episode of orthostasis with standing.
Will discharge to home with plan for prompt follow-up with PCP.
Encouraged to avoid skipping meals, staying well hydrated on a daily basis.
ED Attending Note
-
Portions of this chart may have been created with voice recognition software.� Occasional wrong word or��sound alike� substitutions may have occurred due to the inherent limitations of voice recognition software.
Discharge Plan
Departure
Patient Disposition: Home (Routine Discharge)
Date of Disposition: 04/30/25
Time of Disposition: 05:49
Patient with high blood pressure during this ER visit?: No
Condition: Good
Discharge Problem:
Acute nonspecific chest pain with low risk of coronary artery disease, Vasovagal near syncope
Instructions: Coping with worry and stress, Chest Pain PCP Follow Up
Prescriptions:
No Action
amoxicillin-pot clavulanate [Augmentin] 500-125 mg tablet
1 tab PO Q8H 5 Days Qty: 15 0RF
Referrals:
Zeinab Quan CRNP [Primary Care Provider, General] - Call in 1-3 days for appt
Interventions
Interventions:
*Risk Screen - Suicide Last Done: 04/30/25 01:07
*General Assessment Last Done: 04/30/25 01:07
*Neglect/Abuse Screening Last Done: 04/30/25 01:07
*ED- Fall Risk Assessment Last Done: 04/30/25 01:07
*ED COVID-19 Vaccine History Last Done: 04/30/25 01:07
*Nursing Disposition Last Done: 04/30/25 06:05
ED- Cardiac Assessment Last Done: 04/30/25 01:07
Discharge Date and Time
Discharge Date/Time: 04/30/25 06:06
Print Language: Gambian
== END 2025-04-30 06:06 | disposition home or self-care (01) ==
LOC: EMR 00:05
PROVIDERS: EMERGENCY PHYSICIAN Emergency Medicine; PRIMARYCARE PHYSICIAN Nurse Practitioner
DX: R07.9 Chest pain, unspecified (principal); R55 Syncope and collapse; Z98.890 Other specified postprocedural states; Z90.89 Acquired absence of other organs
CPT/HCPCS: 96360; 99284; 80053; 84443; 84484; 84703; 85025; 93005

== ENCOUNTER 2025-06-24 21:19 | Emergency (ER) | payer OTHER, SELFPAY ==
[2025-06-24 21:21] VITALS: BP 140/77
[2025-06-24 21:37] VITALS: BP 127/76
[2025-06-24 22:00] VITALS: BP 112/69
[2025-06-24 22:03] VITALS: BMI 22.7
[2025-06-24 22:07] VITALS: BP 112/69
[2025-06-24 22:34] LABS: Hematocrit 36.4 % (37.0-47.0); Hemoglobin 11.8 g/dL (12.0-16.0); Mean Corp Hgb Conc. 32.4 g/dL (33.0-37.0); Mean Corpuscular Volume 77.0 fL (81.0-99.0); Nucleated Red Blood Cells % 0 %; Platelet Count 201 10^3/uL (130-400); Red Cell Dist. Width 16.4 % (11.5-14.5)
[2025-06-24 23:00] VITALS: BP 127/71
[2025-06-24 23:10] LABS: ALT (SGPT) 15 U/L (0-35); AST (SGOT) 15 U/L (14-36); Albumin 4.5 g/dl (3.5-5.0); Alkaline Phosphatase 48 U/L (38-126); Blood Urea Nitrogen 7 mg/dl (7-17); Calcium 9.4 mg/dl (8.4-10.2); Carbon Dioxide 22 mmol/L (22-30); Chloride 111 mmol/L (98-107); Estimated Creatinine Clearance 99 ml/min; Glucose 96 mg/dl (70-99); Potassium 4.3 mmol/L (3.5-5.1); Sodium 141 mmol/L (135-145); Total Protein 6.9 g/dl (6.3-8.2); eGFR > 60.00
[2025-06-24 23:20] LABS: D-Dimer < 0.27 ug/mlFEU (0.00-0.50)
[2025-06-24 23:22] LABS: Troponin I < 0.012 ng/ml
[2025-06-24] MEDS: CARAFATE SUSPENSION 1 GM PO (23:25)
[2025-06-24] MEDS: NSS 1000 IV (23:58)
[2025-06-25] VITALS: BP 112/70
[2025-06-25] MEDS: ZOFRAN 4 MG IV (00:38)
[2025-06-25 01:00] VITALS: BP 119/71
[2025-06-25] MEDS: TYLENOL ORAL SOLUTION 650 MG PO (01:13)
--- NOTE | 2025-06-25 01:43 | ED.GENMED ---
History of Present Illness
General
Chief Complaint: Anxiety
Source: patient and other
Exam Limitations: none
Time Seen by Provider: 06/24/25 21:43
Nursing documentation reviewed up to this point in time: agreed with
History of Present Illness
History of Present Illness:
Note:
CHIEF COMPLAINT(S)
Severe neck and arm pain.
HISTORY OF PRESENT ILLNESS
The patient is a 40-year-old male presenting with neck and arm pain that started about 10 hours ago. Initially, the pain was intense, rated as 9 out of 10. At the time of evaluation, the pain had decreased to a 6 out of 10. The pain seems to
radiate from the head down to the arms and neck. There is no mention of the pain being affected by position or physical activity.
The patient has a history of two parathyroidectomies this year, which might be relevant to the current presentation, though not directly affecting the symptoms at hand. The patient does not take any medications regularly.
MEDICATIONS
The patient has not been prescribed any current medications.
REVIEW OF SYSTEMS
- Musculoskeletal: Severe neck and arm pain, described as very strong.
- Gastrointestinal: Plan is to administer a medication (likely carafate) to coat the stomach and reduce possible reflux that could potentially exacerbate symptoms.
PHYSICAL EXAM
General: Alert, no acute distress.
Skin: Warm, dry.
Head: Normocephalic, atraumatic.
Neck: Supple, trachea midline.
Eye Ears, nose, mouth and throat: Oral mucosa moist.
Cardiovascular: Normal peripheral perfusion, No edema.
Respiratory: Respirations are non-labored.
Gastrointestinal: Abdomen nondistended
Back: Normal range of motion, Normal alignment.
Musculoskeletal: Normal ROM, normal strength.
Neurological: Alert and oriented to person, place, time, and situation, No focal neurological deficit observed.
Psychiatric: Cooperative, appropriate mood & affect.
PROBLEM LIST
Acute Problems:
- Severe neck and arm pain
Chronic Problems:
- History of parathyroid surgeries
PLAN
- Await lab work results.
- Administer medication (likely sucralfate) to coat the stomach and assess its effect on pain.
- Perform a physical examination to assess neck and arm discomfort.
DIFFERENTIAL DIAGNOSIS
The Differential Diagnosis includes, in no particular order and is not limited to:
- Cervical radiculopathy
- Musculoskeletal strain
- Neuropathy
- Myofascial pain syndrome
- Gastroesophageal reflux disease with referred pain
- Carpal tunnel syndrome
- Thoracic outlet syndrome
- Spinal stenosis
- Peripheral nerve entrapment
- Fibromyalgia
Disposition:
SUMMARY OF ENCOUNTER
The patient is a 40-year-old female who presented with increased stress and anxiety, reporting head pain that radiated down to her arms and legs. She has been experiencing heightened stress recently and noted that the symptoms occur under stress.
During the visit, she was administered sucralfate which alleviated her symptoms. Additionally, she received acetaminophen for migraine-like symptoms, which also led to symptom resolution. The patient experienced nausea and was treated with
ondansetron, which helped.
DISPOSITION
Patient to be discharged home.
MEDICATION RECONCILIATION
- Sucralfate administered for symptomatic relief.
- Acetaminophen administered for migraine-like symptoms.
- Ondansetron administered for nausea.
PATIENT EDUCATION AND COUNSELING
The patient was educated on managing stress and anxiety and advised on the importance of reducing stress to prevent recurrence of symptoms.
FOLLOW-UP INSTRUCTIONS
Follow-up with primary care physician for ongoing management of stress and anxiety.
MEDICAL DECISION MAKING
-Complexity of Data Reviewed:
- Differential diagnosis considered: Neuropathy, Myofascial pain syndrome, Carpal tunnel syndrome.
-Data:
Category 2
- Language line was used extensively throughout the history and physical process, indicating the use of an pool nurse service.
DIAGNOSIS
- Anxiety disorder with physical symptoms (F41.9)
- Migraine-like headache (G43.909)
Past History
Past History
ED Past Medical History: Other (Hyperparathyroidism status post prior thyroidectomy November 2024.); Negative Asthma, HTN, Hypercholesterolemia or NIDDM
ED Past Surgical History: Gynecological (Uterine polyp removed) and Other (Parathyroidectomy November 2024)
Social History
Tobacco: Non-smoker
Alcohol: Occasional
Drug: None
Personal: Single
Living: alone
Employment: Not employed
Family History
Family History: Other (Noncontributory)
Phy Exam
General Physical Exam
General Presentation: well appearing and no apparent distress
General Skin: warm and dry
General Habitus: normal
General Mental: alert
General Hydration: appears well hydrated
ENT Exam
ENT Exam: EOMI, pharynx normal, neck supple and normocephalic
Eye Exam
Eye Exam: PERRL, cornea clear and conjunctiva normal
Cardiovascular Exam
Cardiovascular Exam: regular rate/rhythm, no edema, no murmur and normal peripheral pulses
Pulmonary Exam
Pulmonary Exam: lungs clear, no respiratory distress, no rales, no crackles, no rhonchi, no stridor, no wheezing and no cough
Gastrointestinal Exam
Gastrointestinal Exam: normal bowel sounds, non tender, soft, no organomegaly, no pulsatile mass and non distended
Neurological Exam
Neurological Exam: alert, oriented x3, no motor deficits and speech normal
Musculoskeletal Exam
Musculoskeletal Exam: full ROM and no edema
Skin Exam
Skin Exam: normal color, warm/dry, no rash and no petechia
Psychiatric Exam
Psychiatric Exam: normal mood/affect
Course
Orders/Labs/Results
Orders:
Orders
06/24/25 21:20
EKG [Electrocardiogram (*1)] Urgent
Reason for Study: Chest Pain
06/24/25 21:21
EKG- Treatment ONCE
06/24/25 22:27
Complete Blood Count/With Diff Urgent
Comprehensive Metabolic Panel Urgent
Troponin I Urgent
06/24/25 23:00
D-Dimer Urgent
06/24/25 23:13
Sucralfate Suspension [Carafate Suspension] 1 gm PO NOW STA
06/24/25 23:35
0.9% Sodium Chloride 1000 ml [Nss] 1,000 ml IV BOLUS
CXR2 [CR Chest - 2 Views ] Urgent
Comment:
Reason For Exam: chest pain
06/25/25 00:36
Ondansetron Injectable [Zofran] 4 mg .ROUTE .STK-MED ONE
06/25/25 00:37
Ondansetron Injectable [Zofran] 4 mg IV NOW STA
06/25/25 00:58
Acetaminophen [Tylenol] 1,000 mg .ROUTE .STK-MED ONE
Acetaminophen [Tylenol] 1,000 mg PO NOW STA
06/25/25 01:03
Acetaminophen 1000MG/100Ml [Ofirmev] 1,000 mg in 100 ml IV ONCE
Acetaminophen IV Indication:: ED Narcotic Naive Pt-ONCE
06/25/25 01:11
Acetaminophen [Tylenol Oral Solution] 650 mg .ROUTE .STK-MED ONE
06/25/25 01:12
Acetaminophen [Tylenol Oral Solution] 650 mg PO NOW STA
Abnormal Lab Results
06/24/25
22:27
WBC 4.7 L 10^3/uL
(4.8-10.8)
Hgb 11.8 L g/dL
(12.0-16.0)
Hct 36.4 L %
(37.0-47.0)
MCV 77.0 L fL
(81.0-99.0)
MCH 24.9 L pg
(27.0-31.0)
MCHC 32.4 L g/dL
(33.0-37.0)
RDW 16.4 H %
(11.5-14.5)
MPV 10.9 H fL
(7.4-10.4)
Monocytes % 9.4 H %
(1.7-9.3)
Chloride 111 H mmol/L
(98-107)
06/24/25 22:27
06/24/25 22:27
Vital Signs
Initial and Last Documented VS:
Initial Vital Signs
Temp Pulse Resp BP Pulse Ox
97.7 F 81 18 140/77 99
06/24/25 21:21 06/24/25 21:21 06/24/25 21:21 06/24/25 21:21 06/24/25 21:21
Last Documented Vital Signs
Temp Pulse Resp BP Pulse Ox
97.7 F 69 17 119/71 99
06/24/25 21:21 06/25/25 01:30 06/24/25 22:15 06/25/25 01:00 06/25/25 01:30
*Radiology
Radiology exam reviewed: all reviewed NAD by ED Provider
*Pulse Oximetry
SaO2: 99
Oxygen Mode of Delivery: Room air
Patient hypoxic: no
*Critical Care Note
Total Time (30-74mins, 75-104mins- exclusive of procedures): Not Applicable
ED Attending Note
-
Portions of this chart may have been created with voice recognition software.� Occasional wrong word or��sound alike� substitutions may have occurred due to the inherent limitations of voice recognition software.
Discharge Plan
Departure
Patient Disposition: Home (Routine Discharge)
Date of Disposition: 06/25/25
Time of Disposition: 01:44
Patient with high blood pressure during this ER visit?: Yes
Condition: Good
Discharge Problem:
Anxiety, Musculoskeletal pain, Headache
Instructions: Anxiety, Adult (DC), BLOOD PRESSURE
Referrals:
Zeinab Quan CRNP [Family Provider, General]
Activity Restrictions/Additional Instructions:
Thank You for choosing [facility].
It was a pleasure meeting you and taking part in your care. We hope for your continued healing and wellness.
Please read discharge instructions in their entirety. However, they are for general education and may not describe your exact diagnosis at discharge. Information on your ER visit and medical conditions were discussed with you along with appropriate
follow up information...
If indicated, please take your medications as instructed and indicated on discharge paperwork.
Please schedule a follow up appointment as directed. Call to schedule an appointment
Please return to the emergency department with ANY change in, persisting, or worsening of symptoms. If any of your symptoms do not improve, or persist, or become more severe within 6-12 hours, please return to the emergency department for further
care.
Please return to the emergency department if you develop a headache, neck pain/stiffness, fever greater than 100.4F, chest pain, shortness of breath, persistent nausea, vomiting, slurred speech, difficulty walking, numbness/tingling, weakness, signs
of infection or any other symptoms that are worrisome to you.
If you have any questions or concerns please do not hesitate to call the Hospital at or E-mail me directly at [email or web address]
Interventions
Interventions:
*Risk Screen - Suicide Last Done: 06/24/25 21:21
*General Assessment Last Done: 06/24/25 21:21
*Neglect/Abuse Screening Last Done: 06/24/25 21:21
*ED- Fall Risk Assessment Last Done: 06/24/25 22:06
*ED COVID-19 Vaccine History Last Done: 06/24/25 22:06
ED-Psychological Assessment Last Done: 06/24/25 22:09
Discharge Date and Time
Print Language: Guatemalan
== END 2025-06-25 02:00 | disposition home or self-care (01) ==
LOC: EMR 21:19
PROVIDERS: EMERGENCY PHYSICIAN Student in an Organized Health Care Education/Training Program; FAMILY PHYSICIAN Nurse Practitioner
DX: F41.9 Anxiety disorder, unspecified (principal); M79.18 Myalgia, other site; R51.9 Headache, unspecified; E21.2 Other hyperparathyroidism
CPT/HCPCS: 96374; 96361; 99284; 71046; 80053; 84484; 85025; 85379; 93005

== ENCOUNTER 2025-08-14 19:38 | Emergency (ER) | payer OTHER, SELFPAY ==
[2025-08-14 19:40] VITALS: BP 121/84
--- NOTE | 2025-08-14 20:33 | ED.GENMED ---
History of Present Illness
General
Chief Complaint: Cold/Flu/URI Symptoms
Time Seen by Provider: 08/14/25 19:48
History of Present Illness
History of Present Illness:
40-year-old female without significant past medical history presenting to the emergency department for generally feeling unwell. Patient reports for the past week she has had cough and congestion with nasal drainage. Reports that she has had
difficulty sleeping. Denies fever. Denies chest pain. Denies abdominal pain or GI symptoms. Reports that her son was also sick with similar symptoms. Denies additional acute medical complaints. Patient is Gibraltarian-speaking with interpretation
by Gibraltarian spanish interpreter/translator device
Past History
Past History
ED Past Medical History: Other (Hyperparathyroidism status post prior thyroidectomy November 2024.); Negative Asthma, HTN, Hypercholesterolemia or NIDDM
ED Past Surgical History: Gynecological (Uterine polyp removed) and Other (Parathyroidectomy November 2024)
Social History
Tobacco: Non-smoker
Alcohol: Occasional
Drug: None
Personal: Single
Living: alone
Employment: Not employed
Family History
Family History: Other (Noncontributory)
Phy Exam
Physical Exam
Physical Exam:
General: Well-appearing, no clinical signs of dehydration, nontoxic and in no acute distress
HEENT: protecting airway
Neck: appears supple, no meningismus, no tenderness to the neck
CV: Normal heart rate, regular rhythm, no evidence of cyanosis
Resp: No accessory muscle use, no increased work of breathing, lungs clear to auscultation bilaterally
Abd: No distention
Extremities: No deformities, no swelling
Neuro: alert, no focal neurologic deficit
: deferred
Rectal: deferred
Psych: Normal affect
Skin: Intact
Course
Orders/Labs/Results
Orders:
Orders
08/14/25 20:29
0.9% Sodium Chloride 1000 ml [Nss] 1,000 ml IV BOLUS
Ketorolac [Toradol] 15 mg IV NOW STA
08/14/25 20:30
CR Chest - 2 Views Urgent
Comment:
Reason For Exam: cough
08/14/25 20:49
COVID-19 Antigen Urgent
Source: Nasal Swab
CPK [Creatine Phosphokinase] Urgent
Complete Blood Count/With Diff Urgent
Comprehensive Metabolic Panel Urgent
Influenza A+B Rapid Molecular Urgent
BENSON Source: Nasal Swab
Specimen Description:
Abnormal Lab Results
08/14/25
20:49
Hgb 11.2 L g/dL
(12.0-16.0)
Hct 34.7 L %
(37.0-47.0)
MCV 76.3 L fL
(81.0-99.0)
MCH 24.6 L pg
(27.0-31.0)
MCHC 32.3 L g/dL
(33.0-37.0)
RDW 14.7 H %
(11.5-14.5)
MPV 10.7 H fL
(7.4-10.4)
08/14/25 20:49
08/14/25 20:49
Vital Signs
Initial and Last Documented VS:
Initial Vital Signs
Temp Pulse Resp BP Pulse Ox
97.9 F 82 20 121/84 99
08/14/25 19:40 08/14/25 19:40 08/14/25 19:40 08/14/25 19:40 08/14/25 19:40
Last Documented Vital Signs
Temp Pulse Resp BP Pulse Ox
97.9 F 82 20 121/84 99
08/14/25 19:40 08/14/25 19:40 08/14/25 19:40 08/14/25 19:40 08/14/25 20:34
MDM/Problems Addressed
MDM/Problems Addressed:
40-year-old female presenting to the emergency department for generalized bodyaches, cough, congestion. Vital signs are normal.
On exam, patient is resting comfortably, no acute distress. Patient is afebrile, nontoxic. Suspect viral syndrome. Lower suspicion for systemic infection. Lungs are clear to auscultation. No tenderness to the sinuses. No active drainage. No
meningismus or focal neurologic deficits without concern for meningitis. Will screen with laboratory analysis, chest x-ray imaging viral swabs and treat with IV fluids and Toradol.
21:30 - Labs unremarkable. Chest x-ray without acute cardiopulmonary disease. Viral swabs are negative. Continue to suspect viral syndrome. Patient notes she recently started taking Augmentin. Explained that no indication for antibiotics at
this time. Ultimately feel stable for discharge with continued outpatient supportive therapy. Advised Benadryl as a sleep aid. Return precautions discussed and patient verbalized understanding.
*Pulse Oximetry
SaO2: 99
Oxygen Mode of Delivery: Room air
Patient hypoxic: no
*Critical Care Note
Total Time (30-74mins, 75-104mins- exclusive of procedures): Not Applicable
ED Attending Note
-
Portions of this chart may have been created with voice recognition software.� Occasional wrong word or��sound alike� substitutions may have occurred due to the inherent limitations of voice recognition software.
Discharge Plan
Departure
Patient Disposition: Home (Routine Discharge)
Date of Disposition: 08/14/25
Time of Disposition: 21:35
Patient with high blood pressure during this ER visit?: No
Condition: Good
Discharge Problem:
Acute viral syndrome
Instructions: Viral Syndrome (DC)
Prescriptions:
New
diphenhydramine HCl [Benadryl] 25 mg capsule
25 mg PO HS PRN (Reason: Sleep) Qty: 10 0RF
Referrals:
Zeinab Quan CRNP [Family Provider, General]
Activity Restrictions/Additional Instructions:
You were seen in the emergency department for congestion and cough
You were found to have reassuring vital signs, laboratory analysis, chest x-ray imaging and viral swabs. We suspect that you have a virus. We recommend continued Tylenol and Motrin as well as oral fluids.
Please follow-up closely with your primary care physician.
Return to the emergency department for any worsening of your symptoms, or any development of chest pain, difficulty breathing, abdominal pain with persistent vomiting and inability to tolerate food or liquid by mouth (concern for dehydration),
weakness, headache or confusion, fever greater than 100.4, or any additional symptoms that are concerning to you.
Thank you for choosing [facility].
Interventions
Interventions:
*General Assessment Last Done: 08/14/25 19:40
Discharge Date and Time
Print Language: Gibraltarian
[2025-08-14] MEDS: TORADOL 15 MG IV (20:41)
[2025-08-14] MEDS: NSS 1000 IV (20:47)
[2025-08-14 21:02] LABS: Hematocrit 34.7 % (37.0-47.0); Hemoglobin 11.2 g/dL (12.0-16.0); Mean Corp Hgb Conc. 32.3 g/dL (33.0-37.0); Mean Corpuscular Volume 76.3 fL (81.0-99.0); Nucleated Red Blood Cells % 0 %; Platelet Count 250 10^3/uL (130-400); Red Cell Dist. Width 14.7 % (11.5-14.5)
[2025-08-14 21:10] LABS: COVID-19 Antigen Negative (Negative)
[2025-08-14 21:24] LABS: ALT (SGPT) 18 U/L (0-35); AST (SGOT) 16 U/L (14-36); Albumin 4.2 g/dl (3.5-5.0); Alkaline Phosphatase 43 U/L (38-126); Blood Urea Nitrogen 12 mg/dl (7-17); Calcium 9.5 mg/dl (8.4-10.2); Carbon Dioxide 24 mmol/L (22-30); Chloride 107 mmol/L (98-107); Glucose 97 mg/dl (70-99); Potassium 4.1 mmol/L (3.5-5.1); Sodium 138 mmol/L (135-145); Total Protein 6.7 g/dl (6.3-8.2); eGFR > 60.00
== END 2025-08-14 21:57 | disposition home or self-care (01) ==
LOC: EMR 19:38
PROVIDERS: EMERGENCY PHYSICIAN Student in an Organized Health Care Education/Training Program; FAMILY PHYSICIAN Nurse Practitioner
DX: B34.9 Viral infection, unspecified (principal)
CPT/HCPCS: 99284; 96374; 96361; 71046; 80053; 82550; 85025; 87502; 87811

== ENCOUNTER 2025-08-19 09:11 | Emergency (ER) | payer OTHER, SELFPAY ==
[2025-08-19 09:23] VITALS: BP 112/82
--- NOTE | 2025-08-19 10:59 | ED.GENMED ---
History of Present Illness
General
Chief Complaint: Crisis Evaluation
Source: patient
Exam Limitations: none
Time Seen by Provider: 08/19/25 10:58
Nursing documentation reviewed up to this point in time: agreed with
History of Present Illness
History of Present Illness:
The patient is a pleasant 40-year-old female who presents with her son who in B[place]ian for her. The patient and her family moved from the [facility] to the [facility] 3 years ago. The patient is here because she reports that her anxiety is so
severe that is interfering with her ability to sleep and work. She has not been able to work for 4 months. She reports that she has had increased panic attacks for about 4 months. She is particularly stressed out about not being able to go back
to the [facility] to be with her family. She denies suicidal and homicidal thoughts. She denies drugs. She denies cigarette smoke. She reports that she drinks alcohol about once per month. The patient is and lives with 2 sons. She
reports that when she gets very stressed she gets neck stiffness and a headache. She denies rash, sore throat, fever and vomiting. Patient reports that the medicine given to her by the ED a few days ago has not helped her sleep. Additionally,
patient is requesting more long-term antianxiety and antidepression medicine and does not want to leave the ED until this is prescribed. Crisis consulted
Past History
Past History
ED Past Medical History: Psychiatric (Anxiety, depression) and Other (Hyperparathyroidism status post prior thyroidectomy November 2024.)
ED Past Surgical History: Gynecological (Uterine polyp removed) and Other (Parathyroidectomy November 2024)
Social History
Tobacco: Non-smoker
Alcohol: Occasional
Drug: None
Personal:
Living: with family
Employment: Not employed
Family History
Family History: Other (Noncontributory)
Review of Systems
Review of Systems
Allergies reviewed?: Yes
All Other Systems: ROS reviewed and negative except as documented in HPI and ROS
Constitutional: Reports fatigue
EENT: Reports no symptoms
Respiratory: Reports no symptoms
Cardiac: Reports no symptoms
ABD/GI: Reports no symptoms
: Reports no symptoms
Musculoskeletal: Reports neck pain
Skin: Reports no symptoms
Neurological: Reports headache
Endocrine: Reports no symptoms
Hematologic/Lymphatic: Reports no symptoms
Psychiatric: Reports depression and anxiety
Phy Exam
Physical Exam
Physical Exam:
Physical Exam
General: Patient is tearful but consolable. Nontoxic and well-appearing
Neck: supple. No midline spine tenderness. No swelling of neck. No cervical lymphadenopathy. No meningismus. Pharynx appears normal
Heart: s1/s2 regular rate and rhythm, no murmur. equal radial pulses.
Lungs: no acute respiratory distress. clear bilaterally
Abdomen: normal bowel sounds. not tender. no CVAT
Neuro: alert and orientedx3. no focal neurological deficits. Extraocular muscles intact. 5 out of 5 strength in all extremities without drift
Skin: no rash
Psychiatric: well kept. interactive and cooperative
Extremities: no edema. no calf tenderness. negative homans. good distal pulses
Course
Orders/Labs/Results
Orders:
Orders
08/19/25 09:13
Crisis Consult Urgent
Reason for Consult: depression anxiety
Comment: would like to be started on meds today
08/19/25 11:30
Alprazolam [Xanax] 0.5 mg PO NOW STA
Escitalopram Oxalate [Lexapro] 10 mg PO NOW STA
Vital Signs
Initial and Last Documented VS:
Initial Vital Signs
Temp Pulse Resp BP Pulse Ox
98.4 F 88 14 112/82 97
08/19/25 09:23 08/19/25 09:23 08/19/25 09:23 08/19/25 09:23 08/19/25 09:23
Last Documented Vital Signs
Temp Pulse Resp BP Pulse Ox
98.4 F 88 14 112/82 97
08/19/25 09:23 08/19/25 09:23 08/19/25 09:23 08/19/25 09:23 08/19/25 10:59
MDM/Problems Addressed
Differential Diagnosis Includes:
Acute panic disorder, generalized anxiety disorder
MDM/Problems Addressed:
Patient presents with acute on chronic anxiety and depression
Chronic conditions affecting care: Psychiatric illness
Acute Exacerbation and/or Progression of Chronic Illness: Psychiatric illness
*Pulse Oximetry
SaO2: 97
Oxygen Mode of Delivery: Room air
Patient hypoxic: no
*EKG
Interpreted by ED Provider?: NA
*Accounting Tutor Interpretation
Rate: Accounting Tutor- N/A
*Critical Care Note
Total Time (30-74mins, 75-104mins- exclusive of procedures): Not Applicable
Data Reviewed
Review of Other/Old Records Reveals: Labs (Labs reviewed from 08/14/2025)
Source: patient and family
Patient Management
Social determinants of health affecting care: Living situation and Strong social support
Discussion with other providers: Other (Samina crisis evaluated the patient at the bedside and gave her specific names of psychiatrist and phone numbers for follow-up)
Escalation/DeEscalation of care consider admission/obs:
Patient has no plans of hurting herself. She feels more calm from the Xanax. Her and her son feel comfortable going home and following up with the resources given to them.
ED Attending Note
-
Portions of this chart may have been created with voice recognition software.� Occasional wrong word or��sound alike� substitutions may have occurred due to the inherent limitations of voice recognition software.
Discharge Plan
Departure
Patient Disposition: Home (Routine Discharge)
Date of Disposition: 08/19/25
Time of Disposition: 12:32
Patient with high blood pressure during this ER visit?: No
Condition: Good
Covid-19: Not Applicable
Discharge Problem:
Panic attack, Anxiety
Instructions: Anxiety, Adult (DC)
Prescriptions:
New
alprazolam [Xanax] 0.25 mg tablet
0.25 mg PO TID PRN (Reason: anxiety) Qty: 14 0RF
escitalopram oxalate [Lexapro] 10 mg tablet
10 mg PO DAILY Qty: 30 0RF
No Action
diphenhydramine HCl [Benadryl] 25 mg capsule
25 mg PO HS PRN (Reason: Sleep) Qty: 10 0RF
Referrals:
Zeinab Quan CRNP [Family Provider, General]
Activity Restrictions/Additional Instructions:
Use the Xanax only as needed for severe anxiety. Please start taking the Lexapro every day.
Please call and follow-up with the psychiatrist that you are given
Interventions
Interventions:
*Risk Screen - Suicide Last Done: 08/19/25 09:27
Discharge Date and Time
Print Language: Bermudian
[2025-08-19] MEDS: LEXAPRO 10 MG PO (11:53)
[2025-08-19] MEDS: XANAX 0.5 MG PO (11:53)
[2025-08-19 13:00] VITALS: BP 119/62
== END 2025-08-19 13:00 | disposition home or self-care (01) ==
LOC: EMR 09:11
PROVIDERS: EMERGENCY PHYSICIAN Emergency Medicine; FAMILY PHYSICIAN Nurse Practitioner
DX: F41.0 Panic disorder [episodic paroxysmal anxiety] (principal); F41.8 Other specified anxiety disorders
CPT/HCPCS: 99283

== ENCOUNTER 2025-08-23 20:07 | Emergency (ER) | payer OTHER, SELFPAY ==
[2025-08-23 20:30] LABS: Hematocrit 40.2 % (37.0-47.0); Hemoglobin 13.0 g/dL (12.0-16.0); Mean Corp Hgb Conc. 32.3 g/dL (33.0-37.0); Mean Corpuscular Volume 76.4 fL (81.0-99.0); Nucleated Red Blood Cells % 0 %; Platelet Count 257 10^3/uL (130-400); Red Cell Dist. Width 14.6 % (11.5-14.5)
[2025-08-23 21:09] LABS: ALT (SGPT) 20 U/L (0-35); AST (SGOT) 18 U/L (14-36); Albumin 5.2 g/dl (3.5-5.0); Alkaline Phosphatase 55 U/L (38-126); Blood Urea Nitrogen 10 mg/dl (7-17); Calcium 10.5 mg/dl (8.4-10.2); Carbon Dioxide 24 mmol/L (22-30); Chloride 103 mmol/L (98-107); Glucose 93 mg/dl (70-99); Potassium 4.3 mmol/L (3.5-5.1); Sodium 138 mmol/L (135-145); Total Protein 8.4 g/dl (6.3-8.2); eGFR > 60.00
[2025-08-23 22:00] VITALS: BP 111/71
[2025-08-23] MEDS: ZOFRAN ODT (ORALLY DISINTEGRATING) 4 MG PO (22:35)
--- NOTE | 2025-08-23 22:53 | ED.GENMED ---
History of Present Illness
General
Chief Complaint: Anxiety
Source: patient and family
Exam Limitations: none (Maltese interpreter deaf used)
Time Seen by Provider: 08/23/25 21:47
Nursing documentation reviewed up to this point in time: agreed with
History of Present Illness
History of Present Illness:
40-year-old female has medical history of thyroid disorder anxiety depression presenting to the emergency department today with concerns of lack effectiveness of Lexapro and Xanax at home. She has had an ongoing anxiety generalized burning
sensation nausea throat pain vague headache. She has had the symptoms ongoing for extended period of time. She does not follow this week with her primary care doctor.
Past History
Past History
ED Past Medical History: Psychiatric (Anxiety, depression) and Other (Hyperparathyroidism status post prior thyroidectomy November 2024.)
ED Past Surgical History: Gynecological (Uterine polyp removed) and Other (Parathyroidectomy November 2024)
Social History
Tobacco: Non-smoker
Alcohol: Occasional
Drug: None
Personal:
Living: with family
Employment: Not employed
Family History
Family History: Other (Noncontributory)
Review of Systems
Review of Systems
Allergies reviewed?: Yes
All Other Systems: ROS reviewed and negative except as documented in HPI and ROS
Phy Exam
Physical Exam
Physical Exam:
GENERAL: Alert , in no apparent distress
EYE: pupils equal and reactive
NECK: Supple, no significant adenopathy.
ENT: o/p clr, mmm.
CARDIAC: Regular rate and rhythm .
LUNGS: Clear breath sounds bilaterally, no acute respiratory distress, no wheezes/rales/rhonchi
ABDOMEN: Soft, without focal tenderness, no r/g, no cvat
NEUROLOGICAL: Alert and oriented, no focal neuro deficits
SKIN: Warm and dry, skin intact.
MUSCULOSKELETAL: No edema, well perfused.
PSYCH: Normal and appropriate interaction.
Course
Orders/Labs/Results
Orders:
Orders
08/23/25 20:24
Complete Blood Count/With Diff Urgent
Comprehensive Metabolic Panel Urgent
HCG, Serum Qualitative Screen Urgent
Comment: ADD ON
TSH Reflex To Free T4 Urgent
08/23/25 22:30
Add On- LAB Urgent
Tests Added?: serum hcg qual
EKG [Electrocardiogram (*1)] Urgent
Reason for Study: Fatigue / Weakness
EKG- Treatment ONCE
Ondansetron Orally Disint [Zofran Odt (Orally Disintegrating)] 4 mg PO NOW STA
Abnormal Lab Results
08/23/25
20:24
MCV 76.4 L fL
(81.0-99.0)
MCH 24.7 L pg
(27.0-31.0)
MCHC 32.3 L g/dL
(33.0-37.0)
RDW 14.6 H %
(11.5-14.5)
MPV 10.9 H fL
(7.4-10.4)
Calcium 10.5 H mg/dl
(8.4-10.2)
Total Protein 8.4 H g/dl
(6.3-8.2)
Albumin 5.2 H g/dl
(3.5-5.0)
08/23/25 20:24
08/23/25 20:24
Vital Signs
Initial and Last Documented VS:
Initial Vital Signs
Temp
98.9 F
08/23/25 20:11
Last Documented Vital Signs
Temp Pulse Resp BP Pulse Ox
98.9 F 89 16 111/71 99
08/23/25 20:11 08/23/25 22:00 08/23/25 22:00 08/23/25 22:00 08/23/25 22:56
MDM/Problems Addressed
MDM/Problems Addressed:
40-year-old female presenting to the emergency department today multiple concerns. Main concern is body burning sensation anxiety, vague headache nausea. This has been present for any send period of time. On arrival here vital signs are normal
labs unremarkable patient no distress normal physical examination. No neck stiffness moving her head freely no neurologic symptoms on examination. EKG is normal. Here no emergent findings on assessment patient vies for close primary care
follow-up for further management of this. Return precautions given.
*Pulse Oximetry
SaO2: 99
Oxygen Mode of Delivery: Room air
Patient hypoxic: no (99)
*Critical Care Note
Total Time (30-74mins, 75-104mins- exclusive of procedures): Not Applicable
ED Attending Note
-
Portions of this chart may have been created with voice recognition software.� Occasional wrong word or��sound alike� substitutions may have occurred due to the inherent limitations of voice recognition software.
Discharge Plan
Departure
Patient Disposition: Home (Routine Discharge)
Date of Disposition: 08/23/25
Time of Disposition: 23:23
Patient with high blood pressure during this ER visit?: No
Condition: Good
Covid-19: Not Applicable
Discharge Problem:
Anxiety
Instructions: Anxiety, Adult (DC)
Prescriptions:
No Action
diphenhydramine HCl [Benadryl] 25 mg capsule
25 mg PO HS PRN (Reason: Sleep) Qty: 10 0RF
alprazolam [Xanax] 0.25 mg tablet
0.25 mg PO TID PRN (Reason: anxiety) Qty: 14 0RF
escitalopram oxalate [Lexapro] 10 mg tablet
10 mg PO DAILY Qty: 30 0RF
Referrals:
UNKNOWN - PT DOES,NOT KNOW [Family Provider]
Activity Restrictions/Additional Instructions:
You came to the emergency department today with concerns of multiple symptoms. Please follow closely with the primary care doctor this week for further assessment. Return for any worsening or progressive symptoms.
Interventions
Interventions:
*Risk Screen - Suicide Last Done: 08/23/25 20:11
*General Assessment Last Done: 08/23/25 20:11
*Neglect/Abuse Screening Last Done: 08/23/25 20:11
*ED- Fall Risk Assessment Last Done: 08/23/25 20:11
*ED COVID-19 Vaccine History Last Done: 08/23/25 20:11
*ED Influenza Vaccine History Last Done: 08/23/25 20:11
ED-Psychological Assessment Last Done: 08/23/25 22:01
Discharge Date and Time
Print Language: Maltese
[2025-08-23 23:04] LABS: HCG, Serum Qualitative Screen Negative
[2025-08-23] MEDS: TORADOL 15 MG IM (23:54)
[2025-08-23] MEDS: REGLAN 10 MG PO (23:54)
[2025-08-24 00:15] VITALS: BP 120/66
--- NOTE | 2025-08-24 00:16 | EDRN ---
Went over in depth with patient and family paperwork and follow up with her primary as well as specialist, they have an apt. with primary tomorrow, vital signs stable and patient ambulated out without difficulty.
== END 2025-08-24 00:17 | disposition home or self-care (01) ==
LOC: EMR 20:07
PROVIDERS: Emergency Medicine; EMERGENCY PHYSICIAN Emergency Medicine
DX: F41.8 Other specified anxiety disorders (principal); E89.0 Postprocedural hypothyroidism
CPT/HCPCS: 99283; 96372; 80053; 84443; 84703; 85025; 93005